=== PATIENT | female | born 1950 | race African-American/Black ===

== ENCOUNTER 2016-10-11 07:34 | Outpatient (CLI) | payer OTHER ==
[~2016-10-11 07:34] MED LIST: DOCU-144 PO; FERR-57 PO; HYDR-4100 PO; PRO40 PO; TRAM50TA92 PO
== END 2016-10-11 18:10 | disposition home or self-care (01) ==
LOC: SMA 07:34
DX: Z12.31 Encounter for screening mammogram for malignant neoplasm of breast (principal)
CPT/HCPCS: G0202

== ENCOUNTER 2016-12-20 09:37 | Outpatient (CLI) | payer OTHER ==
[2016-12-20 13:53] LABS: BASOPHILS % (AUTO) 0.7 % (0.0-2.0); EOSINOPHILS # (AUTO) 0.1 K/uL (0.0-0.4); EOSINOPHILS % (AUTO) 2.1 % (0.0-4.0); HEMATOCRIT 42.6 % (36-48); LYMPHOCYTES # (AUTO) 1.4 K/uL (1.0-5.5); MEAN CORPUSCULAR HEMOGLOBIN 32 pg (27-31); MEAN CORPUSCULAR HGB CONC 33 % (32-36); MEAN CORPUSCULAR VOLUME 97 fL (79.0-98.0); MONOCYTES # (AUTO) 0.4 K/uL (0.0-1.0); MONOCYTES % (AUTO) 7.9 % (1.7-9.3); NEUTROPHILS # (AUTO) 3.4 K/uL (1.8-7.7); NEUTROPHILS % (AUTO) 62.3 % (40.0-70.0); PLATELET COUNT (AUTO) 253 K/uL (130-430); RED BLOOD CELL COUNT(AUTO) 4.42 MIL/uL (4.2-6.2); RED CELL DISTRIBUTION WIDTH 14.3 % (9.0-15.0); WHITE BLOOD COUNT (AUTO) 5.3 K/uL (4.8-10.8)
[2016-12-20 14:30] LABS: CALCIUM 8.9 mg/dL (8.4-11.0); CREATININE 0.72 mg/dL (0.55-1.30); FREE T4 (FREE THYROXINE) 0.8 ng/dL (0.6-1.6); THYROID STIMULATING HORMONE 0.88 uIu/mL (0.34-4.82); TOTAL BILIRUBIN 0.4 mg/dL (0.0-1.0)
[2016-12-21 03:06] LABS: HEMOGLOBIN A1C 5.4 % (4.8-5.6)
[2016-12-21 08:07] LABS: TRIIODOTHYRONINE, FREE 2.7 pg/mL (2.0-4.4)
== END 2016-12-20 17:18 | disposition home or self-care (01) ==
LOC: SUS 09:37
DX: D24.2 Benign neoplasm of left breast (principal); D24.1 Benign neoplasm of right breast; N60.02 Solitary cyst of left breast; N60.01 Solitary cyst of right breast; R92.2 Inconclusive mammogram; R79.89 Other specified abnormal findings of blood chemistry
CPT/HCPCS: 36415; 76641; 80053; 80061; 82306; 83036; 84439; 84443-TC; 84481; 85025